=== PATIENT | male | born 1955 | race Caucasian/White ===

== ENCOUNTER 2018-01-08 21:08 | Inpatient (IN) | payer OTHER ==
[~2018-01-08] VITALS: Ht 185.4 cm; Wt 107.9 kg
[~2018-01-08 21:08] MED LIST: CYCLOBENZAPRINE10 MG PO; LEVOTHYROXINE175 MCG PO; LEVOTHYROXINE75 MCG PO; MOTRIN600 MG PO; MULTIPLE VITAM1 EACH PO; PERCOCET 5/31 TABLET PO; PREDNISONE10 M1 PO; SKELAXIN800 MG PO; TAMSULOSIN HCL0.4 MG PO; ZOCOR40 MG PO
[2018-01-09 06:03] VITALS: BP 141/82
[2018-01-09] MEDS ORDERED: PERCOCET 5/31 TABLET PO (10:52)
[2018-01-09] MEDS ORDERED: BACTRIM,SEPT1 TABLET PO (10:52)
[2018-01-09 15:05] LABS: HEMATOCRIT 42.1 % (38.0-50.0); MCV 95.2 FL (86-99)
[2018-01-09 15:16] LABS: HEMOGLOBIN 14.3 G/DL (12.5-16.6)
[2018-01-09 18:04] VITALS: BP 114/60
[2018-01-09 23:30] VITALS: BP 120/66
[2018-01-10 03:08] VITALS: BP 123/64
[2018-01-10 07:00] VITALS: BP 131/69
[2018-01-10 11:43] VITALS: BP 134/83
[2018-01-10 15:45] VITALS: BP 138/78
[2018-01-10 19:48] VITALS: BP 147/71
[2018-01-11] VITALS (7 sets, daily range): BP systolic 139–180; BP diastolic 67–91
[2018-01-11 07:20] LABS: CHLORIDE 101 MEQ/L (99-109); CREATININE 1.2 MG/DL (0.6-1.3); GFR ESTIMATE (CALCULATED) > 59 mL/min/ (58.99-99999); GLUCOSE 138 mg/dL (70-99); POTASSIUM 3.5 MEQ/L (3.7-5.4); SODIUM 135 MEQ/L (136-147); UREA NITROGEN (BUN) 22 mg/dL (9-23)
[2018-01-11 07:38] LABS: HEMATOCRIT 32.9 % (38.0-50.0); MCH 31.7 PG (29.0-34.0); MCHC 33.7 G/DL (30.0-36.0); PLATELET COUNT 145 K/uL (156-360)
[2018-01-11 07:49] LABS: HEMOGLOBIN 11.1 G/DL (12.5-16.6)
[2018-01-12 03:49] VITALS: BP 126/63
[2018-01-12 07:15] VITALS: BP 140/66
[2018-01-12 10:30] LABS: C DIFF TOXIN NEGATIVE (NEGATIVE)
[2018-01-12 11:15] VITALS: BP 134/70
== END 2018-01-12 15:02 | disposition home or self-care (01) | DRG 708 ==
LOC: ENRESERV 21:08 → 5EAST 01-09 05:34 → 2SOUTH 01-09 05:34 → ENRESERV 01-09 13:57 → 2SOUTH 01-09 13:58 → 5EAST 01-09 17:16
PROVIDERS: Nurse Practitioner Adult Health; Urology
DX: C61 Malignant neoplasm of prostate (principal); Z88.0 Allergy status to penicillin; R06.6 Hiccough; R19.7 Diarrhea, unspecified; E78.00 Pure hypercholesterolemia, unspecified; E03.9 Hypothyroidism, unspecified; Z87.891 Personal history of nicotine dependence
CPT/HCPCS: 80048; 85014; 85018; 85027; 87493; 88305; 88309; 88341 TC; 88342 TC; 90686; 94799; J0131; J0330; J1100; J1170; J1580; J1885; J2250; J2405; J3010; J7050; J7120; Q0164

== ENCOUNTER → 2018-05-15 | Outpatient (CLI) | payer OTHER ==
[~2018-05-15] VITALS: Ht 185.4 cm; Wt 105.7 kg
[~2018-05-15] MED LIST changes: +ADVIL200 MG PO; +BACTRIM,SEPT1 TABLET PO
== END | disposition home or self-care (01) ==
LOC: AMB 07:00
PROC: 0DBK8ZX Excision of Ascending Colon, Via Natural or Artificial Opening Endoscopic, Diagnostic (ICD-10-PCS; principal; 2018-05-15)
DX: Z12.11 Encounter for screening for malignant neoplasm of colon (principal); D12.2 Benign neoplasm of ascending colon; K64.8 Other hemorrhoids; E78.5 Hyperlipidemia, unspecified; E03.9 Hypothyroidism, unspecified; Z85.46 Personal history of malignant neoplasm of prostate; Z83.49 Family history of other endocrine, nutritional and metabolic diseases; Z87.891 Personal history of nicotine dependence; Z88.0 Allergy status to penicillin; Z88.8 Allergy status to other drugs, medicaments and biological substances
CPT/HCPCS: 88305